=== PATIENT | female | born 1985 | race Caucasian/White ===

== ENCOUNTER 2022-05-17 15:56 | Emergency (ER) | payer MEDICAID ==
[2022-05-17] MEDS ORDERED: Sodium Chloride 0.9% 10 ML Syringe FLUSH PRN (16:34)
[2022-05-17] MEDS ORDERED: Ondansetron 4 MG/2 ML SDV IVPUSH ONE (16:34)
[2022-05-17] MEDS ORDERED: Lactated Ringers 1,000 ML IV ONE (16:34)
[2022-05-17 17:06] LABS: ESTIMATED GFR 50 mL/min (>60)
[2022-05-17 17:45] VITALS: BP 100/59; PULSE 86
== END 2022-05-17 18:23 | disposition home or self-care (01) ==
LOC: JP.ED 15:56
DX: A05.9 Bacterial foodborne intoxication, unspecified (principal); Z91.018 Allergy to other foods; Z88.5 Allergy status to narcotic agent; Z72.0 Tobacco use
CPT/HCPCS: 36415; 80053; 83605; 85025; 96361; 96374; 99284; J2405; J7120